=== PATIENT | female | born 2000 | race Hispanic/Latino ===

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

== ENCOUNTER 2020-07-07 01:09 | Emergency (ER) | payer OTHER ==
[~2020-07-07] VITALS: Ht 162.6 cm; Wt 72.6 kg
--- OUTSIDE RECORDS SUMMARY | ~2020-07-07 | XMS | Encounter Summary ---
Demographics + + + | Address | [address] | | | [place] [address] | + + + | Home Phone | | + + + | Preferred Language | Unknown | + + + | Marital Status | Single | + + + | Voodoo Affiliation | Unknown | + + + | Race | Unknown | + + + | Ethnic Group | Unknown | + + + Author + + + | Author | [facility] | | | and Enmanuelana | + + + | Organization | [facility] | | | and Enmanuelana | + + + | Address | Unknown | + + + | Phone | Unavailable | + + + Support + + + + + | Name | Relationship | Address | Phone | + + + + + | Jennifer Portillo | ECON | [address] | | | | | [place] | | | | | [address] | | + + + + + | Adi Stark | ECON | Unknown | | + + + + + Care Team Providers + +------+ + | Care Director Revenue Name | Role | Phone | + +------+ + | Tsering Trent MD | PCP | | + +------+ + Reason for Visit + + + | Reason | Comments | + + + | Follow-up | | + + + Evaluate & Treat (Routine) +--------+--------+ + + + + | Status | Reason | Specialty | Diagnoses / | Referred By | Referred To | | | | | Procedures | Contact | Contact | +--------+--------+ + + + + | Closed | | Pulmonology | Diagnoses | [place], | Sofía, | | | | | Other | Tsering Rodrigues, | Nava Grcae, | | | | | dyspnea and | MD [address] | MD [address] | | | | respiratory | [address] | | | | | abnormality | [address] | [place], | | | | | Procedures | [place], | [place] [address] | | | | | [place] OFFICE | [place] [address] | | | | | | OUTPATIENT | Phone: | | | | | | VISIT 25 | [phone] | | | | | | MINUTES | Fax: | | | | | | | [phone] | | +--------+--------+ + + + + Encounter Details +--------+---------+ + + + | Date | Type | Department | Care Team | Description | +--------+---------+ + + + | 06/20/ | Office | [facility] [place] | Sofía, | Exercise-induced | | 2013 | Visit | PULMONARY [address] | Nava Grace MD | asthma (Primary Dx) | | | | [place], | | | | | | [place] [address] | | | | | | [phone] | | | +--------+---------+ + + + Social History + + + +--------+------+ | Tobacco Use | Types | Packs/Day | Years | Date | | | | | Used | | + + + +--------+------+ | Former Smoker | Cigarettes | 0.1 | 0.1 | | + + + +--------+------+ + + +---------+ + | Alcohol Use | Drinks/Week | oz/Week | Comments | + + +---------+ + | No | | | has drank alcohol | | | | | once, but does not | | | | | drink regularly | + + +---------+ + + + + | Sex Assigned at | Date Recorded | | | | + + + | Not on file | | + + + documented as of this encounter Last Filed Vital Signs + + + + + | Vital Sign | Reading | Time Taken | Comments | + + + + + | Blood Pressure | 122/66 | 06/20/2014 3:28 PM | | | | | PDT | | + + + + + | Pulse | 75 | 06/20/2014 3:28 PM | | | | | PDT | | + + + + + | Temperature | - | - | | + + + + + | Respiratory Rate | - | - | | + + + + + | Oxygen Saturation | 100% | 06/20/2014 3:28 PM | | | | | PDT | | + + + + + | Inhaled Oxygen | - | - | | | Concentration | | | | + + + + + | Weight | 64.3 kg (141 lb 12.8 | 06/20/2014 3:28 PM | | | | oz) | PDT | | + + + + + | Height | 161.3 cm (5' 3.5") | 06/20/2014 3:28 PM | | | | | PDT | | + + + + + | Body Mass Index | 24.72 | 06/20/2014 3:28 PM | | | | | PDT | | + + + + + documented in this encounter Patient Instructions Patient Instructions Nava Gore MD - 06/20/2014 4:07 PM PDTYour breathing test did not show that your lung function gets worse when you exercise. This makes exercise remy duran asthma unlikely, though not impossible. I will ask Dr. Trent to consider an EKG or stress test to look at the chest pain. That aside, I think you need to focus on exercising more and looking at what sport you want to do in high school. Keep using the ProAir as needed if you are short of breath. Stay off of the Singulair. No smoking (anything)! We will reassess how you are doing in 6 months (if your insurance will cover it). documented in this encounter Progress Notes Nava Gore MD - 06/20/2014 3:52 PM PDTFormatting of this note might be differe nt from the original. Pulmonary Follow Up HPI Giana Stark is a 13 y.o. female patient of Tsering Trent here today for follo w up of shortness of breath. She had an exercise provocation test today, and when she had this done, she describes havin g her heart pound fast and sharp pains. This is similar to the sensation she gets when she exercises. After the test, she describes herself as feeling tired. During the post testing s pirometry, she describes herself as having a hard time breathing. She was still having the s harp pains and the heart pounding. The pains got better in between the test, but never went away. She is no longer having the symptoms, so time after the test, her symptoms went comple tely away. She has not had any Pepsi today. She has not been taking the Singulair since she was last i n clinic. She has not done much in the way of exertion since last seen. She ran around the b lock and then stopped because she got short of breath. She used her inhaler, and it did seem to help her. It took about 2 minutes before it helped relieve her symptoms. She has not been coughing at all. Past Medical History Past Medical History Diagnosis Date GERD (gastroesophageal reflux disease) Past Surgical History History reviewed. No pertinent past surgical history. Social History: History Social History Marital Status: Single Spouse Name: N/A Number of Children: N/A Years of Education: N/A Occupational History Student [employer] Social History Main Topics Smoking status: Former Smoker -- 0.1 packs/day for .1 years Types: Cigarettes Smokeless tobacco: None Alcohol Use: No Comment: has drank alcohol once, but does not drink regularly Drug Use: Yes Comment: smokes marijuana daily since age 12 Sexually Active: None Other Topics Concern None Social History Narrative [place]: mom and siblingsG[place] up: in [place] previously live d in: [place], [place]posure to toxic chemicals: noExposure to asbestos: noExposure to tuberculosis: no Has had a PPD or Quantiferon before: noHas pets at home: no Has ever owned birds: when s he was much younger Other animal exposures: grandparents' dogHobbies: playing video games an d hanging out with friend's Allergies: No Known Allergies Medications: Outpatient Encounter Prescriptions as of 06/20/2014 Medication Sig Dispense Refill albuterol (PROAIR HFA) 90 mcg/puff inhaler Inhale 2 puffs into the lungs every 6 hours as needed. omeprazole (PRILOSEC) 20 mg capsule Take 20 mg by mouth every morning (before breakfast ). Objective BP 122/66 | Pulse 75 | Ht 1.613 m (5' 3.5") | Wt 64.32 kg (141 lb 12.8 oz) | BMI 24.72 kg/m 2 | SpO2 100% General Appearance: Alert, cooperative, no distress, appears stated age Data: Exercise provocation test was performed prior to clinic today and were reviewed and interpr eted in clinic today. It shows no evidence of bronchial hyper responsiveness in response to exercise. Immunization History Administered Date(s) Administered INFLUENZA, PRESERVATIVE FREE IM 09/30/2013 Assessment 1. Exercise-induced asthma - With negative exercise provocation, my suspicion is low for th is as a diagnosis. I would have her remain off the Singulair, but she can use the ProAir if needed. I encouraged her to exercise more often, pending any work up for the chest pain felt necessary by her PCP. We can then reassess in 6 months and if she improves with increased a ctivity, then I think we can say it is likely that she does not have exercise induced asthma . She could also have vocal cord dysfunction, which would not be atypical in her age group, and I would not yet exclude, though she had reproducible symptoms on her testing, and no sig ns of this on her flow volume loops, making it less likely. 2. Chest pain- She describes chest pain on exertion. Though cardiac disease is unlikely in a 13 year old, certain cardiac diseases can present in children. I would consider EKG and st ress test as felt appropriate by her primary provider. I am not a pediatriac specialist, so expect that they are more well versed in this than I, and defer to their expertise. Plan 1.Remain off of Singulair given lack of objective and subjective benefit. 2.Continue to use ProAir if needed. 3.Pending any cardiac work up felt relevant, I suggested she increase her exercise, and pic k a sport to start at high school this fall. 4. Consider EKG and stress test as felt appropriate by her PCP. 5. We can reassess her symptoms in 6 months and see if she is improving. She was advised to call if new pulmonary symptoms were to develop. 20 minutes were spent with Ms. Stark with greater than 50% spent in counseling and coordi nation of care regarding her test results and management. Return to clinic in 6 months, or sooner with concerns. CC: Tsering Trent Portions of this report were transcribed using voice recognition software. Every effort wa s made to ensure accuracy; however, inadvertent computerized barrel filler head errors may be pre sent. Electronically signed by: Nava Gore MD 06/20/2014 15:53 documented in t his encounter Plan of Treatment Not on filedocumented as of this encounter Visit Diagnoses + + | Diagnosis | + + | Exercise-induced asthma - Primary Exercise induced bronchospasm | + + documented in this encounter
--- OUTSIDE RECORDS SUMMARY | ~2020-07-07 | XMS | Clinical Summary ---
Demographics + + + | Address | [address] | | | [place] [address] | + + + | Home Phone | | + + + | Preferred Language | Unknown | + + + | Marital Status | Single | + + + | Church Affiliation | Unknown | + + + | Race | Unknown | + + + | Ethnic Group | Unknown | + + + Author + + + | Author | [facility] | | | and Enmanuelana | + + + | Organization | [facility] | | | and [place]manuel[place] | + + + | Address | Unknown | + + + | Phone | Unavailable | + + + Support + + + + + | Name | Relationship | Address | Phone | + + + + + | Jennifer Portillo | ECON | [address] | | | | | [place], [place] | | | | | [address] | | + + + + + | Adi Stark | ECON | Unknown | | + + + + + Care Team Providers + +------+ + | Care Lockstitch Waistband Setter Name | Role | Phone | + +------+ + | Tsering Trent MD | PCP | | + +------+ + Allergies No Known Allergies Medications + + + +---------+------+------+-------+ | Medication | Sig | Dispensed | Refills | Star | End | Statu | | | | | | t | Date | s | | | | | | Date | | | + + + +---------+------+------+-------+ | albuterol (PROAIR | Inhale 2 puffs into | | 0 | | | Activ | | HFA) 90 mcg/puff | the lungs every 6 | | | | | e | | inhaler | hours as needed. | | | | | | + + + +---------+------+------+-------+ | omeprazole | Take 20 mg by mouth | | 0 | | | Activ | | (PRILOSEC) 20 mg | every morning | | | | | e | | capsule | (before breakfast). | | | | | | + + + +---------+------+------+-------+ Active Problems + + + | Problem | Noted Date | + + + | DERAS (dyspnea on exertion) | 06/06/2014 | + + + | GERD (gastroesophageal reflux disease) | 05/22/2014 | + + + Immunizations + + + + | Name | Administration Dates | Next Due | + + + + | INFLUENZA PF 17 Y OR | 09/30/2013 | | | >,TRIVALENT | | | | RECOMBINANT | | | + + + + Family History + + +------+ + | Medical History | Relation | Name | Comments | + + +------+ + | Heart attack | Mother | | s/p stent | + + +------+ + | High blood pressure | Mother | | | + + +------+ + | High cholesterol | Mother | | | + + +------+ + | Other (see comment) | Mother | | D&C x 2 | + + +------+ + + +------+--------+ + | Relation | Name | Status | Comments | + +------+--------+ + | Brother | | Alive | | + +------+--------+ + | Brother | | Alive | | + +------+--------+ + | Brother | | Alive | | + +------+--------+ + | Brother | | Alive | | + +------+--------+ + | Father | | Alive | | + +------+--------+ + | Mother | | Alive | | + +------+--------+ + | Sister | | Alive | | + +------+--------+ + | Sister | | Alive | | + +------+--------+ + | Sister | | Alive | | + +------+--------+ + Social History + + + +--------+------+ [...] on file | | + + + Last Filed Vital Signs + + + [...] + + + + | Temperature | 36.6 C (97.8 F) | 06/06/2014 10:32 AM | | | | | PDT | [...] | | + + + + + Plan of Treatment + + + + + | Health Maintenance | Due Date | Last | Comments | | | | Done | | + + + + + | Well Child Check | | | | | | 2 | | | + + + + + | Vaccine: HPV (1 - | | | | | 2-dose series) | 0 | | | + + + + + | Vaccine: | | | | | Dtap/Tdap/Td (1 - | 8 | | | | Tdap) | | | | + + + + + | Cervical Cancer | | | | | Screening (Pap) | 0 | | | + + + + + | Vaccine: Influenza | | 09/30/20 | | | (#1) | 0 | 13 | | + + + + + Results Not on filefrom Last 3 Months Insurance + +--------+ +--------+ +---------+--------+ | Payer | Benefi | Subscriber | Effect | Phone | Address | Type | | | t Plan | ID | lidia | | | | | | / | | Dates | | | | | | Group | | | | | | + +--------+ +--------+ +---------+--------+ | [employer] | [employer] | [id number] | | [phone] | | Medica | | MEDICAID HMO | HEALTH | | 012-Pr | 1 | | id | | | MDCD | | esent | | | | | | [place]MO [place] | | | | | | + +--------+ +--------+ +---------+--------+ + +--------+ +--------+ + + | Guarantor Name | Accoun | Relation to | Date | Phone | Billing Address | | | t Type | Patient | of | | | | | | | | | | + +--------+ +--------+ + + | Jennifer Portillo | Person | Mother | [birth year] | [address] | | [place] | al/Fam | | 1981 | [phone] | [place] [address] | | | moriah | | | 6 (Home) | | + +--------+ +--------+ + + Advance Directives + + + + + | Type | Date Recorded | Patient | Explanation | | | | [employer] | | + + + + + | Power of | | | | | Hotel General Manager | | | | + + + + + | Advance | 06/20/2014 2:03 | | | | Directive | PM | | | + + + + +
--- OUTSIDE RECORDS SUMMARY | ~2020-07-07 | XMS | Encounter Summary ---
Demographics + + + | Address | [address] | | | [place] [address] | + + + | Home Phone | | + + + | Preferred Language | Unknown | + + + | Marital Status | Single | + + + | Islam Affiliation | Unknown | + + + | Race | Unknown | + + + | Ethnic Group | Unknown | + + + Author + + + | Author | [facility] | | | and Enmanuelana | + + + | Organization | [facility] | | | and Enmanuelana | [...] [place] | | | | | [address] | | + + + + + | Adi Antunez ECON | Unknown | | + + + + + Care Team Providers + +------+ + | Care Director Work Name | Role | Phone | + +------+ + | Tsering Trent MD | PCP | | + +------+ + Encounter Details +--------+ + + + + | Date | Type | Department | Care Team | Description | +--------+ + + + + | 06/20/ | Hospital | [facility] | [place], | DERAS (dyspnea on | | 2013 | Encounter | [facility] | Nava Grace MD | exertion) | | | | FUNCTION [address] | | | | | | [place], | | | | | | [place] [address] | | | | | | [phone] | | | +--------+ + + + + Social History + + [...] + + documented as of this encounter Medications at Time of Discharge + + + +---------+--------+ + | Medication | Sig | Dispensed | Refills | Start | End Date | | | | | | Date | | + + + +---------+--------+ + | albuterol (PROAIR | Inhale 2 puffs into | | 0 | | | | HFA) 90 mcg/puff | the lungs every 6 | | | | | | inhaler | hours as needed. | | | | | + + + +---------+--------+ + | omeprazole | Take 20 mg by mouth | | 0 | | | | (PRILOSEC) 20 mg | every morning | | | | | | capsule | (before breakfast). | | | | | + + + +---------+--------+ + documented as of this encounter Procedure Notes Nava Gore MD - 06/26/2014 8:38 AM PDTAssociated Order(s): PFT PULMONARY FUNCT ION TESTING ORDERSProcedure(s): PFT PULMONARY FUNCTION TESTING ORDERSPre-Procedure Diagnose( s): DERAS (dyspnea on exertion) PULMONARY FUNCTION TESTING METHOD: The patient performed exercise on the bicycle until target heart rate obtained, inc reasing the blount from 0 to 125, at a rate of 25 per minute. Oxygen saturation was continuou sly monitored. Once target heart rate was achieved, spirometry was measured every 5 minutes post exercise, up until a drop of 20% was seen, or until the 20 minute time period. ATS dede dards were met. EXERCISE PROVOCATION TEST: Prior to exercise, the patient's baseline FVC was normal at 3.63 L or 103% of predicted. Their baseline FEV1 was normal at 3.30 L or 106% of predicted. The patient then performed 6 minutes of exercise, achieving a heart rate 178, with a target hear t rate 175. This was at 125 blount. Oxygen saturation was 100% prior to exercise, and 100% at end exercise. Serial spirometry was then performed, starting at 5 minutes, until 20 minutes post exercise. At 20 minutes post exercise, The FVC was 3.51 L or 100% of predicted. The FE V1 was 3.24 L or 104% of predicted. IMPRESSION: This is interpreted as a negative exercise provocation test, without evidence f or bronchial hyperresponsiveness in response to exercise. Electronically signed by: Nava Gore MD 06/26/2014 8:38 M [facility] CC: Tsering Trent [facility] T - 06/20/2014 12:00 AM PDTAssociated Order(s): [facility]ST[facility] signed by Israel Emmanuel at 06/27/2014 10:31 AM PDTdocumented in this encounter Plan of Treatment Not on filedocumented as of this encounter Procedures + +--------+ + + + | Procedure Name | Priori | Date/Time | Associated Diagnosis | Comments | | | ty | | | | + +--------+ + + + | PFT PULMONARY | [facility] | 06/26/2014 | DERAS (dyspnea on | Results for this | | FUNCTION TESTING | | 8:49 AM | exertion) | procedure are in the | | ORDERS | | PDT | | results section. | + +--------+ + + + | PFT PULMONARY | [facility] | 06/26/2014 | DERAS (dyspnea on | Results for this | | FUNCTION TESTING | | 8:49 AM | exertion) | procedure are in the | | ORDERS | | PDT | | results section. | + +--------+ + + + | DIAGNOSTIC REPORT - | | 06/20/2014 | | | | EXTERNAL SCAN | | 12:00 AM | | | | | | PDT | | | + +--------+ + + + documented in this encounter Results PFT PULMONARY FUNCTION TESTING ORDERS Exercise induced asthma testing?: Yes; Exercise induc ed asthma testing?: Yes (06/26/2014 8:49 AM PDT) + + + | Narrative | Performed At | + + + | Nava Gore MD 06/26/2014 8:49 PULMONARY | | | FUNCTION TESTING METHOD: The patient performed exercise on the | | | bicycle until target heart rate obtained, increasing the blount from | | | 0 to 125, at a rate of 25 per minute. Oxygen saturation was | | | continuously monitored. Once target heart rate was achieved, | | | spirometry was measured every 5 minutes post exercise, up until a | | | drop of 20% was seen, or until the 20 minute time period. ATS | | | standards were met. EXERCISE PROVOCATION TEST: Prior to exercise, | | | the patient's baseline FVC was normal at 3.63 L or 103% of | | | predicted. Their baseline FEV1 was normal at 3.30 L or 106% of | | | predicted. The patient then performed 6 minutes of exercise, | | | achieving a heart rate 178, with a target heart rate 175. This was | | | at 125 blount. Oxygen saturation was 100% prior to exercise, and 100% | | | at end exercise. Serial spirometry was then performed, starting at | | | 5 minutes, until 20 minutes post exercise. At 20 minutes post | | | exercise, The FVC was 3.51 L or 100% of predicted. The FEV1 was 3.24 | | | L or 104% of predicted. IMPRESSION: This is interpreted as a | | | negative exercise provocation test, without evidence for bronchial | | | hyperresponsiveness in response to exercise. Electronically | | | signed by: Nava Gore MD 06/26/2014 8:38 [facility] | | [facility] CC: Tsering Rodrigues [place] | | + + + + + | Procedure Note | + + | Nava Gore MD - 06/26/2014 8:38 AM PDT PULMONARY FUNCTION TESTING | | METHOD: The patient performed exercise on the bicycle until target heart rate obtained, | | increasing the blount from 0 to 125, at a rate of 25 per minute. Oxygen saturation was | | continuously monitored. Once target heart rate was achieved, spirometry was measured | | every 5 minutes post exercise, up until a drop of 20% was seen, or until the 20 minute | | time period. ATS standards were met. EXERCISE PROVOCATION TEST: Prior to exercise, the | | patient's baseline FVC was normal at 3.63 L or 103% of predicted. Their baseline FEV1 | | was normal at 3.30 L or 106% of predicted. The patient then performed 6 minutes of | | exercise, achieving a heart rate 178, with a target heart rate 175. This was at 125 | | blount. Oxygen saturation was 100% prior to exercise, and 100% at end exercise. Serial | | spirometry was then performed, starting at 5 minutes, until 20 minutes post exercise. At | | 20 minutes post exercise, The FVC was 3.51 L or 100% of predicted. The FEV1 was 3.24 L | | or 104% of predicted. IMPRESSION: This is interpreted as a negative exercise | | provocation test, without evidence for bronchial hyperresponsiveness in response to | | exercise. Electronically signed by: Nava Gore MD 06/26/2014 8:38[facility] | | [facility] Tsering Rodrigues [place] | + + documented in this encounter Visit Diagnoses + + | Diagnosis | + + | DERAS (dyspnea on exertion) Other dyspnea and respiratory abnormality | + + documented in this encounter"
--- OUTSIDE RECORDS SUMMARY | ~2020-07-07 | XMS | Encounter Summary ---
Demographics + + + | Address | [address] | | | [place] [address] | + + + | Home Phone | | + + + | Preferred Language | Unknown | + + + | Marital Status | Single | + + + | Hoahaoism Affiliation | Unknown | + + + | Race | Unknown | + + + | Ethnic Group | Unknown | + + + Author + + + | Author | [facility] | | | and Enmanuelana | + + + | Organization | [facility] | | | and Enmanuelana [...] [place] | | | | | [address] | | + + + + + | Adi Stark | ECON | Unknown | | + + + + + Care Team Providers + +------+ + | Care Furnace Process Supervisor Name | Role | Phone | + +------+ + | Tsering Trent MD | PCP | | + +------+ + Reason for Visit + +--------+ + | Reason | Onset | Comments | | | Date | | + +--------+ + | Appointment | 12/21/ | | | | 2014 | | + +--------+ + Encounter Details +--------+ + + + + | Date | Type | Department | Care Team | Description | +--------+ + + + + | 12/21/ | Telephone | [facility] [place] | [place], | Appointment | | 2014 | | PULMONARY [address] | Nava Grace MD | | | | | [place], | | | | | | [place] [address] | | | | | | [phone] | | | +--------+ + + + [...] + + documented as of this encounter Miscellaneous Notes Telephone Encounter - Rula Karimi - 01/10/2015 10:38 AM PSTLEFT VOICE MESSAGE 12-06 AND 01-10-15 TO RESCHEDULE PATIENT FOR A FOLLOW UP APPOINTMENT WITH DR. BERNARD. CHING Gamble HAS BEEN SENT. AT THIS TIME NO APPOINTMENT HAS BEEN MADE. IF PATIENTS MOTHER IS TO CALL Yue NEWMAN IN THE NEXT AVAILABLE. 10 :40 AM PSTTelephone Encounter - Carmelita Kerr - 12/21/2014 4:22 PM PSTI left a message o n mother's voicemail to see if she would like to reschedule the appointment that she missed with Dr. Bernard on 12/01/14. 4:2 2 PM PSTdocumented in this encounter Plan of Treatment Not on filedocumented as of this encounter Visit Diagnoses Not on filedocumented in this encounter"
--- OUTSIDE RECORDS SUMMARY | ~2020-07-07 | XMS | Encounter Summary ---
Demographics + + + | Address | [address] | | | [place] [address] | + + + | Home Phone | | + + + | Preferred Language | Unknown | + + + | Marital Status | Single | + + + | Sikh Affiliation | Unknown | + + + | Race | Unknown | + + + | Ethnic Group | Unknown | + + + Author + + + | Author | [facility] | | | and Enmanuelana | + + + | Organization | [facility] | | | and Enmanuelana [...] [place] | | | | | [address] | | + + + + + | Adi Stark | ECON | Unknown | | + + + + + Care Team Providers + +------+ + | Care Tail Worker Name | Role | Phone | + +------+ + | Tsering Trent MD | PCP | | + +------+ + Reason for Visit + +--------+ + | Reason | Onset | Comments | | | Date | | + +--------+ + | Appointment | 05/18/ | consult | | | 2013 | | + +--------+ + Encounter Details +--------+ + + + + | Date | Type | Department | Care Team | Description | +--------+ + + + + | 05/18/ | Telephone | [facility] [place] | [place], | Appointment | | 2013 | | PULMONARY [address] | Nava Grace MD | (consult) | | | | [place], | | | | | | [place] [address] | | | | | | [phone] | | | +--------+ + + + + Social History + +-------+ +--------+------+ | Tobacco Use | Types | Packs/Day | Years | Date | | | | | Used | | + +-------+ +--------+------+ | Never Assessed | | | | | + +-------+ +--------+------+ + + + | Sex Assigned at | Date Recorded | | | | + + + | Not on file | | + + + documented as of this encounter Miscellaneous Notes Telephone Encounter - Rula Karimi - 05/19/2014 9:32 AM PDTScheduled 7.8.14Electr onically signed by Rula Karimi at 05/19/2014 9:32 AM PDTTelephone Encounter - Rula Parkinson - 05/18/2014 10:59 AM PDTLeft voice message to schedule patient a FOOD SAFETY MANAGER consu lt with Dr. Gore. If patient is to call back please schedule in the next available. documented in this encounter Plan of Treatment Not on filedocumented as of this encounter Visit Diagnoses Not on filedocumented in this encounter"
--- OUTSIDE RECORDS SUMMARY | ~2020-07-07 | XMS | Encounter Summary ---
Demographics + + + | Address | [address] | | | [place] [address] | + + + | Home Phone | | + + + | Preferred Language | Unknown | + + + | Marital Status | Single | + + + | Judaism Affiliation | Unknown | + + + | Race | Unknown | + + + | Ethnic Group | Unknown | + + + Author + + + | Author | [facility] | | | and Enmanuelana | + + + | Organization | [facility] | | | and [...] [place] | | | | | [address] | | + + + + + | Adi Stark | ECON | Unknown | | + + + + + Care Team Providers + +------+ + | Care University Intern Name | Role | Phone | + +------+ + | Tsering Trent MD | PCP | | + +------+ + Reason for Visit + + + | Reason | Comments | + + + | Establish Care | | + + + Evaluate & Treat (Routine) +--------+--------+ + + + + | Status | Reason | Specialty | Diagnoses / | Referred By | Referred To | | | | | Procedures | Contact | Contact | +--------+--------+ + + + + | Closed | | Pulmonology | Diagnoses | Cristhian, | Sofía, | | | | | Other | Ellie Montelongo, | Nava Grace, | | | | | diseases of | MARINE RAILWAY OPERATOR [address] | MD [address] | | | | | respiratory | [address] | [address] | | | | | system, not | [id number] | [place], | | | | | elsewhere | [place], | [place] [address] | | | | | classified | [place] [address] | | | | | | Esophageal | Phone: | | | | | | reflux | [phone] | | | | | | Procedures | Fax: | | | | | | CONSULTATION | [phone] | | +--------+--------+ + + + + Encounter Details +--------+---------+ + + + | Date | Type | Department | Care Team | Description | +--------+---------+ + + + | 06/06/ | Office | [facility] [place] | Ifeanyienstein, | DERAS (dyspnea on | | 2013 | Visit | PULMONARY [address] | Nava Grace MD | exertion) (Primary | | | | [place], | | Dx); GERD | | | | [place] [address] | | (gastroesophageal | | | | [phone] | | reflux disease) | +--------+---------+ + + + Social History [...] + + + | Blood Pressure | 112/70 | 06/06/2014 10:32 AM | | | | | PDT | | + + + + + | Pulse | 70 | 06/06/2014 10:32 AM | | | | | PDT | | + + + + + | Temperature | 36.6 C (97.8 F) | 06/06/2014 10:32 AM | | | | | PDT | | + + + + + | Respiratory Rate | - | - | | + + + + + | Oxygen Saturation | 100% | 06/06/2014 10:32 AM | | | | | PDT | | + + + + + | Inhaled Oxygen | - | - | | | Concentration | | | | + + + + + | Weight | 63.1 kg (139 lb 3.2 | 06/06/2014 10:32 AM | | | | oz) | PDT | | + + + + + | Height | 161.9 cm (5' 3.75") | 06/06/2014 10:32 AM | | | | | PDT | | + + + + + | Body Mass Index | 24.08 | 06/06/2014 10:32 AM | | | | | PDT | | + + + + + documented in this encounter Patient Instructions Patient Instructions Nava Gore MD - 06/06/2014 11:31 AM PDTStop Singulair now. Continue to use the ProAir as needed. We will schedule the exercise breathing test in 2-4 weeks after you have been off the Singu lair. documented in this encounter Progress Notes Nava Gore MD - 06/06/2014 10:46 AM PDTFormatting of this note might be differe nt from the original. Pulmonary Consult Referring Provider: Ellie Morrow, XOCHILT HPI Giana Stark is a 13 y.o. female patient of Tsering Trent here today for evalu ation of shortness of breath. She notes that when she is active, she has a very hard time breathing and she loses her rafia ath. She notes that this started last year, she thinks in the winter time. She does not real ly recall it starting. She notes that her typical activity is that she walks to her friends' houses and she gets v joe tired. Her friends live down the street, about 9 houses down. At school, she has PE, and she exercises and does 2 laps around the track. She notes she used to do this, but now she gets really tired. She feels like she gets more short of breath than tired. When she gets sh ort of breath she hears herself breathe heavily. She cannot recall the last time she did reg ular exercise. She may have heard herself wheeze, but she is not familiar with wheezing and does not know anyone with asthma (her mom may have a prior diagnosis, but this is not clear) . She does not cough chronically, and does not produce mucous. They have had hemoptysis. She notes she coughed up blood a couple of months ago. She notes that she could not breathe and she went to the bathroom and vomited up blood. Triggers for their shortness of breath include walking, exercise, standing up (which also m akes her dizzy). Relieving factors include using her inhaler (sometimes), smoking marijuana. Treatments that they have tried to this point include Singulair and albuterol. Currently th ey are on Singulair and ProAir. She does not feel like the Singulair helps her, the ProAir h elps "kind of." She uses the ProAir twice daily. She notes she uses it when she feels like she can't breathe and she is trying to calm herself down. She has not been hospitalized or had to go to the emergency room for breathing problems. Soto iyer was a full term and there were no problems after she was born. She was not sick ofte n when she was younger. She did not have issues with asthma when she was younger. She used to play basketball when she was younger, 5th and 6th grade. 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 She notes that the breathing problems happened and then she couldn't do it an ymore. She has been diagnosed as having reflux, and is on omeprazole. She notes her symptoms are b cayla. She notes that at night she would have chest pain, then she would try to throw up bec ause stuff would be coming up, but it would go back down to her stomach. She would sometimes get acid taste in her mouth. The first medication did not make this go away, but the second one did. She drinks Pepsi, 44 ounces a day. She has drank alcohol once, last week. Past Medical History Past Medical History Diagnosis Date GERD (gastroesophageal reflux disease) Past Surgical History History reviewed. No pertinent past surgical history. Family History: Family History Problem Relation Age of Onset High cholesterol Mother High blood pressure Mother Heart attack Mother s/p stent Other (See Comment) Mother D&C x 2 Social History: History Social History Marital Status: Single Spouse Name: N/A Number of Children: N/A Years of Education: N/A Occupational History Student [employer] Social History Main Topics Smoking status: Former Smoker -- 0.1 packs/day for .1 years Types: Cigarettes Smokeless tobacco: None Alcohol Use: No Comment: has drank alcohol once, but does not drink regularly Drug Use: Yes Comment: smokes marijuana daily since age 12 Sexually Active: None Other Topics Concern None Social History Narrative Lives: in [place] With: mom and siblingsG[place] up: in [place] previously live d in: [place], [place]posure to toxic chemicals: noExposure to asbestos: noExposure to tuberculosis: no Has had a PPD or Quantiferon before: noHas pets at home: no Has ever owned birds: when s he was much younger Other animal exposures: grandparents' dogHobbies: playing video games an d hanging out with friend's Allergies: No Known Allergies Medications: Outpatient Encounter Prescriptions as of 06/06/2014 Medication Sig Dispense Refill albuterol (PROAIR HFA) 90 mcg/puff inhaler Inhale 2 puffs into the lungs every 6 hours as needed. montelukast (SINGULAIR) 10 mg tablet Take 10 mg by mouth nightly. omeprazole (PRILOSEC) 20 mg capsule Take 20 mg by mouth every morning (before breakfast ). Review of Systems Constitutional: Denies fever, chills, sweats. She reports weight gain. Sleep: She reports difficulty sleeping. She goes to be around 5am, and gets up in the afte rnoon around 1pm. Eyes: She notes her vision has been blurry lately. She does wear glasses and is due for a prescription renewal. ENT: Denies earache, decreased hearing, nosebleeds, sore throat, and hoarseness. She repor ts runny nose and sneezing when the season changes to winter. Resp: See HPI. CV: Denies palpitations, syncope, and peripheral edema. GI: See HPI. : Denies difficulty emptying bladder. Musculoskeletal: Denies joint pain/stiffness, joint swelling, and muscle cramps. Derm: Denies rash, itching, dryness, and suspicious lesions. Neurologic: Denies seizures, numbness or tingling in hands or fee. She gets headaches often . Psych: Denies anxiety, and suicidal ideation. She reports depression. She has not spoken to anyone about this. Endo: Denies cold intolerance, heat intolerance, and unusual weight change. Heme: Denies bleeding, and enlarged lymph nodes. She feels like she bruises easily. Allergy: Denies food allergies, allergic rash. Seasonal allergies as above. Objective BP 112/70 | Pulse 70 | Temp 36.6 C (97.8 F) (Tympanic) | Ht 1.619 m (5' 3.75") | Wt 63. 141 kg (139 lb 3.2 oz) | BMI 24.09 kg/m2 | SpO2 100% RA General Appearance: Alert, cooperative, no distress, appears stated age Head: Normocephalic, without obvious abnormality, atraumatic Eyes: PERRL, conjunctiva clear, no scleral icterus, EOM's intact Ears: Normal TM's, external auditory canals, normal acuity Nose: Nares normal, septum midline, mucosa normal Mouth: No oral lesions or exudate Neck: Supple, symmetrical, no adenopathy Lungs: No accessory muscle use, breath sounds are clear to auscultation bilaterally, no w heezes, crackles or rhonchi Chest Wall: No deformity Heart: Regular rate and rhythm, no murmur, rub or gallop Abdomen: Soft, non-tender, non-distended Extremities: No cyanosis, clubbing, or edema Pulses: Radial pulses 2+ and symmetric Skin: Warm and dry Lymph nodes: Cervical and supraclavicular nodes normal Data: Pulmonary function tests were performed on January 19, 2014 and were reviewed and interpre monroe in clinic today. They show normal spirometry, normal lung volumes, and a normal diffusi on capacity. Ellie Morrow's notes were reviewed in clinic today. Immunization History Administered Date(s) Administered INFLUENZA, PRESERVATIVE FREE IM 09/30/2013 Assessment 1. DERAS (dyspnea on exertion) - Diagnosis is not readily apparent, though exercise induced a sthma is a possibility. Her symptoms are on exertion only. Unclear that she actually has whe ezing, as she cannot come up with those descriptors herself, but is complicit with the descr iption when given (I do not think she is trying to fake this, more that she is trying to com ply). I am not certain if there is some underlying component of anxiety, depression, decondi tioning, VCD. I would also consider anemia. I think this is a fairly complex social situatio n when I dig a little deeper in to questioning her, though mom seems supportive. We will start by stopping her Singulair (did not get any symptomatic benefit) and doing exe rcise provocation testing. If this is negative, I would check a CBC, and then look at possib ly doing a VCD evaluation. I also did advise against smoking, as this is going to affect her breathing regardless of t he etiology of her issues. It is also a demotivator and depressant. 2. GERD (gastroesophageal reflux disease) - Currently well controlled on omeprazole. We dis cussed caffeine usage and how this affects reflux control, and I recommended decrease in caf feine intake. I suspect some of her insomnia would be better controlled with regular adheren ce to a sleep schedule and decreased caffeine intake. Plan 1.Stop Singulair. 2.Continue ProAir as needed. 3. Perform exercise provocation testing in 2-4 weeks after being off of Singulair. No caffe ine allowed the day of testing. 4.Consider next: checking CBC, VCD evaluation. 5. Remain on omeprazole. 6. Recommended decrease in caffeine intake. She was advised to call if new pulmonary symptoms were to develop. Return to clinic in 2-4 weeks, or sooner with concerns. CC: Cristhian Santacruz, Ellie Montelongo, XOCHILT Portions of this report were transcribed using voice recognition software. Every effort wa s made to ensure accuracy; however, inadvertent computerized entry processor errors may be pre sent. Electronically signed by: Nava Gore MD 06/06/2014 11:10 documented in t his encounter Miscellaneous Notes Miscellaneous - ONTOSHA MOODYAR - 06/06/2014 12:00 AM PDT documented in this encounter Plan of Treatment Not on filedocumented as of this encounter Results PFT PULMONARY FUNCTION TESTING [...] signed by: Nava Gore MD 06/26/2014 8:38 [facility] | | | [facility] CC: Tsering Trent | | + + + + + [...] Nava Gore MD 06/26/2014 8:38[facility] | | [facility] | + + documented in this encounter Visit Diagnoses + + | Diagnosis | + + | DERAS (dyspnea on exertion) - Primary Other dyspnea and respiratory abnormality | + + | GERD (gastroesophageal reflux disease) Esophageal reflux | + + documented in this encounter
--- OUTSIDE RECORDS SUMMARY | ~2020-07-07 | XMS | Encounter Summary ---
Demographics + + + | Address | [address] | | | [place] [address] | + + + | Home Phone | | + + + | Preferred Language | Unknown | + + + | Marital Status | Single | + + + | Orthodox Affiliation | Unknown | + + + | Race | Unknown | + + + | Ethnic Group | Unknown | + + + Author + + + | Author | [facility] | | | and Enmanuelana | + + + | Organization | [facility] | | | and Enmanuelana [...] [place] | | | | | [address] | | + + + + + | Adi Antunez ECON | Unknown | | + + + + + Care Team Providers + +------+ + | Care Transportation Clerk Name | Role | Phone | + +------+ + | Tsering Trent MD | PCP | | + +------+ + Encounter Details +--------+ + + + + | Date | Type | Department | Care Team | Description | +--------+ + + + + | 05/22/ | Abstract | [facility] [place] | [place], | GERD | | 2013 | | PULMONARY [address] | Nava Grace MD | (gastroesophageal | | | | [place], | | reflux disease) | | | | [place] [address] | | (Primary Dx) | | | | [phone] | | | +--------+ + + + [...] + + documented as of this encounter Plan of Treatment Not on filedocumented as of this encounter Visit Diagnoses + + | Diagnosis | + + | GERD (gastroesophageal reflux disease) - Primary Esophageal reflux | + + documented in this encounter"
== END 2020-07-07 02:40 | disposition home or self-care (01) ==
LOC: ED 01:09
DX: F10.129 Alcohol abuse with intoxication, unspecified (principal); Y90.7 Blood alcohol level of 200-239 mg/100 ml
CPT/HCPCS: 80053; 81001; 84703; 85025; 96374; 99284-25; G0480; J2405

== ENCOUNTER 2021-05-01 11:26 | Emergency (ER) | payer OTHER ==
[~2021-05-01] VITALS: Ht 162.6 cm; Wt 68.0 kg
[2021-05-01] MEDS ORDERED: REGLAN10 MG PO (15:35)
== END 2021-05-01 16:05 | disposition home or self-care (01) ==
LOC: ED 11:26
DX: O21.9 Vomiting of pregnancy, unspecified (principal); O99.281 Endocrine, nutritional and metabolic diseases complicating pregnancy, first trimester; E86.0 Dehydration; O99.611 Diseases of the digestive system complicating pregnancy, first trimester; K21.9 Gastro-esophageal reflux disease without esophagitis; O99.511 Diseases of the respiratory system complicating pregnancy, first trimester; J45.909 Unspecified asthma, uncomplicated; Z3A.01 Less than 8 weeks gestation of pregnancy
CPT/HCPCS: 76801; 76817; 80053; 81001; 83735; 84702; 84703; 85025; 96374; 99284-25; J2765; J7030

== ENCOUNTER 2021-12-05 02:05 | Inpatient (IN) | payer OTHER ==
[~2021-12-05 02:05] MED LIST changes: +REGLAN10 MG PO
--- NOTE | 2021-12-06 07:13 | PR ---
[facility] [address] [facility] [place], [place] [address] Signed PP Progress Notes Datetime Report Generated by CPLuis: 12/06/2021 07:13 SUBJECTIVE: [id number] Pain: Within Normal Limits Nausea/Vomiting: Denies Vital Signs: [id number] Vital Signs: Reviewed; Within Normal Limits EXAM: Ongoing Cardiovascular: Not Done Respiratory: Not Done Abdomen/Uterus: Abnormal Lochia: Normal Vulva/Perineum: Not Done Breasts: Not Done CVA Tenderness: Not Done Extremities: Normal Incision: Not Applicable Progress: Normal Exam Comments: Fundus firm, NT @ U-2. H/H 30.9, WBC 10.3, plat 147k IMPRESSION/PLAN/PROCEDURES: [id number] Impression: Normal Progression Plan: Discharge Procedures: None Progress Notes: Doing well. She desires discharge today. Signing Physician: Vicky Jade MD Copies: ~ *Electronically Signed* 12/06/21712 VICKY JADE MD PATIENT NAME: TASH WILKINSON PROGRESS NOTE DATE OF : 99 PHYSICIAN: VICKY JADE MD RPT #: [id number] REPORT IS CONFIDENTIAL AND NOT TO BE RELEASED WITHOUT AUTHORIZATION
== END 2021-12-06 10:15 | disposition home or self-care (01) | DRG 807 ==
LOC: FBCO 02:05 → FBC 02:17
PROVIDERS: ADMIT Obstetrics & Gynecology; ATTEND Obstetrics & Gynecology
PROC: 10E0XZZ Delivery of Products of Conception, External Approach (ICD-10-PCS; principal; 2021-12-05)
PROC: 10907ZC Drainage of Amniotic Fluid, Therapeutic from Products of Conception, Via Natural or Artificial Opening (ICD-10-PCS; 2021-12-05)
PROC: 3E0R3BZ Introduction of Anesthetic Agent into Spinal Canal, Percutaneous Approach (ICD-10-PCS; 2021-12-05)
PROC: 00HU33Z Insertion of Infusion Device into Spinal Canal, Percutaneous Approach (ICD-10-PCS; 2021-12-05)
DX: O99.02 Anemia complicating childbirth (principal); Z37.0 Single live birth; O70.0 First degree perineal laceration during delivery; Z20.822 Contact with and (suspected) exposure to COVID-19; Z3A.38 38 weeks gestation of pregnancy; D50.9 Iron deficiency anemia, unspecified; O99.62 Diseases of the digestive system complicating childbirth; O99.52 Diseases of the respiratory system complicating childbirth; J45.909 Unspecified asthma, uncomplicated; K21.9 Gastro-esophageal reflux disease without esophagitis
CPT/HCPCS: 01961; 85027; A9270; C9803; J2590; J7121; U0003

== ENCOUNTER 2024-01-09 15:08 | Emergency (ER) | payer OTHER ==
[~2024-01-09] VITALS: Ht 152.4 cm; Wt 82.5 kg
[~2024-01-09 15:08] MED LIST changes: +AMOX TR-K CLV1 EAC1 PO
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
[2024-01-09] MEDS ORDERED: HYDROCODON-ACE1 EA10 PO (16:34)
== END 2024-01-09 16:45 | disposition home or self-care (01) ==
LOC: ED 15:08
DX: S01.01XA Laceration without foreign body of scalp, initial encounter (principal); Y09 Assault by unspecified means; J45.909 Unspecified asthma, uncomplicated; Z79.899 Other long term (current) drug therapy
CPT/HCPCS: 12002; 99283

== ENCOUNTER 2024-12-21 11:17 | Emergency (ER) | payer SELFPAY ==
[~2024-12-21] VITALS: Ht 152.4 cm; Wt 69.9 kg
[~2024-12-21 11:17] MED LIST changes: +HYDROCODON-ACE1 EA10 PO
[2024-12-21] MEDS ORDERED: SODIUM CHLORIDE 0.9% 1,000 ML IV PRN (12:15)
[2024-12-21] MEDS ORDERED: ondansetron HCL 4 MG/2 ML VIAL IV ONE (12:15)
[2024-12-21 12:16] LABS: BASOPHILS 0.5 % (0-2); EOSINOPHILS 0.8 % (0-6); HEMATOCRIT 40.8 % (35.0-50.0); HEMOGLOBIN 13.5 g/dL (12.0-18.0); LYMPHOCYTES 23.2 % (24-44); MCH 28.7 (27-36); MCV 86.8 fl (81-99); MONOCYTES 6.8 % (0-12); NEUTROPHILS 68.7 % (39-80); PLATELET COUNT 193 K/uL (140-440); RDW 13.7 (10.5-15.0)
[2024-12-21 12:52] LABS: ALBUMIN 3.8 g/dL (3.4-5.0); ALBUMIN/GLOBULIN RATIO 0.9 (1.1-2.4); ANION GAP 14.2 (7-21); BILIRUBIN, TOTAL 0.8 ng/dL (0.2-1.0); BUN/CREATININE RATIO 13.84 (6.0-28.6); CALCIUM 8.8 mg/dL (8.5-10.1); CREATININE, SERUM 0.65 mg/dL (0.55-1.02); POTASSIUM 3.2 mmol/L (3.5-5.1)
[2024-12-21 14:12] VITALS: BP 123/63
== END 2024-12-21 14:12 | disposition home or self-care (01) ==
LOC: ED 11:17
PROVIDERS: Emergency Medicine
DX: O21.9 Vomiting of pregnancy, unspecified (principal); Z3A.01 Less than 8 weeks gestation of pregnancy
CPT/HCPCS: 36415; 76801; 76817; 80053; 83690; 84702; 85025; J2405; J7030

== ENCOUNTER 2025-09-23 13:08 | Emergency (ER) | payer OTHER ==
[~2025-09-23] VITALS: Ht 162.6 cm; Wt 74.8 kg
--- OUTSIDE RECORDS SUMMARY | ~2025-09-23 | XMS | Continuity of Care Document ---
Demographics + + + | Address | [address] | | | [place] [address] | + + + | Preferred Language | Unknown | + + + | Marital Status | Never | + + + | Mu-Ism Affiliation | Unknown | + + + | Race | or | + + + | Ethnic Group | Not or | + + + Author + + + | Author | [place] | + + + | Organization | [place] | + + + | Address | [address] [facility] [address] | | | [place] [address] | + + + | Phone | | + + + Care Team Providers + + + + | Care Reimbursement Consultant Name | Role | Phone | + [...] 00:00 | Patient left without being | [facility] | | | seen | [facility] | + + + + Procedures No [...]
--- OUTSIDE RECORDS SUMMARY | 2025-09-23 13:15 | XMS ---
PreManage Notification: TASH WILKINSON Security Panel Cutter Events No recent Security Events currently on file CRITERIA MET - [facility] - 2 Visits in 30 Days CARE PROVIDERS -, [facility]+ Dentist: Exhauster Engineer Current [place] PHONE: [phone] [facility]/Center: Rural [facility] Current FAMILY PHONE: [phone] Pierre has no Care Guidelines for this patient. ETeodoro VISIT COUNT (12 MO.) [address] [place] [address] TOTAL 3 NOTE: Visits indicate total known visits. ED/UCC VISIT TRACKING (12 MO.) 09/23/2025 13:09 [facility] [place] TYPE: Emergency COMPLAINT: - VOMITING 09/19/2025 19:10 [facility] [place] TYPE: Emergency COMPLAINT: - VOMITING, POSSIBLY 12/21/2024 11:18 [facility] [place] TYPE: Emergency COMPLAINT: - VOMITING DIAGNOSES: - Less than 8 weeks gestation of - Vomiting of , unspecified - Vomiting, unspecified INPATIENT VISIT TRACKING (12 MO.) No inpatient visits to display in this time frame [id number]
[2025-09-23] MEDS ORDERED: SODIUM CHLORIDE 0.9% 500 ML IV ONE (13:30)
[2025-09-23 13:36] LABS: BASOPHILS 0.3 % (0.1-1.2); EOSINOPHILS 0.2 % (0.7-5.8); LYMPHOCYTES 18.9 % (19.3-51.7); MCH 25.4 PG (25.6-32.2); MCHC 33.1 g/dL (32.2-35.5); MCV 76.7 fL (79.4-94.8); MONOCYTES 6.2 % (4.7-12.5); NEUTROPHILS 74.0 % (34.0-71.1); RBC 4.64 M/uL (3.93-5.22)
[2025-09-23 13:46] LABS: ALT (SGPT) 42.0 U/L (14-59); AST (SGOT) 18.0 U/L (15-37); GLOMERULAR FILTRATION RATE,EST 129.0 mL/min (>60); PROTEIN, TOTAL 8.1 g/dL (6.4-8.2); UREA NITROGEN 9.0 mg/dL (7-18)
[2025-09-23 15:02] LABS: BLOOD/HGB, URINE NEGATIVE (Negative); KETONE, URINE NEGATIVE (Negative); LEUK ESTERASE, URINE NEGATIVE (negative); NITRITE, URINE NEGATIVE (negative)
[2025-09-23] MEDS ORDERED: ONDANSETRON ODT4 MG PO (16:28)
[2025-09-23 16:39] VITALS: BP 125/80
== END 2025-09-23 16:37 | disposition home or self-care (01) ==
LOC: ED 13:08
PROVIDERS: Emergency Medicine
DX: O21.0 Mild hyperemesis gravidarum (principal); K80.20 Calculus of gallbladder without cholecystitis without obstruction; J45.909 Unspecified asthma, uncomplicated; Z3A.01 Less than 8 weeks gestation of pregnancy
CPT/HCPCS: 36415; 76705; 80053; 81003; 83735; 84703; 85025; 96361; 96374; 99284-25; J2405; J7040

== ENCOUNTER 2025-10-09 20:22 | Day surgery (SDC) | payer OTHER ==
[~2025-10-09] VITALS: Ht 162.6 cm; Wt 78.0 kg
--- OUTSIDE RECORDS SUMMARY | ~2025-10-09 | XMS | Continuity of Care Document ---
Demographics + + + | Address | [address] | | | [place] [address] | + + + | Preferred Language | Unknown | + + + | Marital Status | Never | + + + | Congregational Affiliation | Unknown | + + + | Race | Unknown | + + + | Ethnic Group | Not or | + + + Author + + + | Author | [facility] | + + + | Organization | [facility] | + + + | Address | [address] | | | [place] [address] | + + + | Phone | | + + + Care Team Providers + + + + | Care Facilities Mechanical Design Engineer Name | Role | Phone | + + + + Unavailable | Unavailable | + + + + Unavailable | Unavailable | + + + + Allergies No information. Encounters No information. Functional Status No information. Immunizations No information. Medications No information. Problems + + + + | date | description | facility | + + + + | 2025-09-19 00:00 | Patient left without being | [facility] | | | seen | [facility] | + + + + Procedures No information. Results/Labs No information. Social History +--------+ + + | date | description | facility | +--------+ + + Vital Signs + + + +---------+ | date | measurement | value | units | + + + +---------+ | 2025-09-19 00:00 | BMI | 33.0 | kg/m2 | + + + +---------+ | 2025-09-19 00:00 | BP_diastolic | 63 | mmHg | + + + +---------+ | 2025-09-19 00:00 | BP_systolic | 125 | mmHg | + + + +---------+ | 2025-09-19 00:00 | heart_rate | 67 | /min | + + + +---------+ | 2025-09-19 00:00 | height_metric | 152.4 | cm | + + + +---------+ | 2025-09-19 00:00 | height_standard | 60 | in | + + + +---------+ | 2025-09-19 00:00 | o2_saturation | 97 | % | + + + +---------+ | 2025-09-19 00:00 | respiration_rate | 18 | /min | + + + +---------+ | 2025-09-19 00:00 | | 97.9 | F | | | temperature_standar | | | | | d | | | + + + +---------+ | 2025-09-19 00:00 | weight_metric | 76.6 | kg | + + + +---------+ | 2025-09-19 00:00 | weight_standard | 168.875 | lb | + + + +---------+"
[~2025-10-09 20:22] MED LIST changes: +ONDANSETRON ODT4 MG PO; +SEVOFLURANE 250 ML BTL INH ONE
--- OUTSIDE RECORDS SUMMARY | 2025-10-09 20:29 | XMS ---
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 - 2 Visits in 30 Days CARE PROVIDERS -, [facility]+ Dentist: Printing Sales Representative Current [place] PHONE: [phone] [facility]/Center: Rural [facility] Current FAMILY PHONE: [phone] Pierre has no Care Guidelines for this patient. ETeodoro VISIT COUNT (12 MO.) [address] [place] [address] TOTAL 4 NOTE: Visits indicate total known visits. ED/UCC VISIT TRACKING (12 MO.) 10/09/2025 20:23 [facility] [place] TYPE: Emergency COMPLAINT: - VAGINAL BLEEDING 09/23/2025 13:09 [facility] [place] TYPE: Emergency COMPLAINT: - VOMITING DIAGNOSES: - Calculus of gallbladder without cholecystitis without obstruction - Less than 8 weeks gestation of - Mild hyperemesis gravidarum - Unspecified asthma, uncomplicated - Vomiting of , unspecified 09/19/2025 19:10 [facility] [place] TYPE: Emergency COMPLAINT: - VOMITING, POSSIBLY 12/21/2024 11:18 [facility] [place] TYPE: Emergency COMPLAINT: - VOMITING DIAGNOSES: - Less than 8 weeks gestation of - Vomiting of , unspecified - Vomiting, unspecified INPATIENT VISIT TRACKING (12 MO.) No inpatient visits to display in this time frame [id number]
[2025-10-09 21:25] LABS: BASOPHILS 0.3 % (0.1-1.2); EOSINOPHILS 0.7 % (0.7-5.8); LYMPHOCYTES 12.5 % (19.3-51.7); MCH 25.4 PG (25.6-32.2); MCHC 31.9 g/dL (32.2-35.5); MCV 79.6 fL (79.4-94.8); MONOCYTES 6.0 % (4.7-12.5); NEUTROPHILS 80.3 % (34.0-71.1); RBC 3.39 M/uL (3.93-5.22)
[2025-10-09 21:46] LABS: ABO A; RH POSITIVE
[2025-10-09 22:07] LABS: ALT (SGPT) 34.0 U/L (14-59); AST (SGOT) 22.0 U/L (15-37); GLOMERULAR FILTRATION RATE,EST 135.0 mL/min (>60); PROTEIN, TOTAL 7.0 g/dL (6.4-8.2); UREA NITROGEN 7.0 mg/dL (7-18)
[2025-10-09] MEDS ORDERED: MIDAZOLAM HCL 2 MG/2 ML VIAL ONE (23:05)
[2025-10-09] MEDS ORDERED: LIDOCAINE HCL 2% 5 ML SDV ONE (23:06)
[2025-10-09] MEDS ORDERED: ROCURONIUM BROMIDE 50 MG/5 ML SYR ONE (23:06)
[2025-10-09] MEDS ORDERED: METHYLERGONOVINE MALEATE 0.2 MG/ML AMP ONE (23:14)
[2025-10-09] MEDS ORDERED: fentaNYL citrate 100 MCG/2 ML VIAL ONE (23:19)
[2025-10-09] MEDS ORDERED: SUGAMMADEX SODIUM 200 MG/2 ML ML ONE (23:22)
[2025-10-09] MEDS ORDERED: KETOROLAC TROMETHAMINE 30 MG/ML VIAL ONE (23:42)
--- NOTE | 2025-10-09 23:48 | NUR ---
10/09/25 2346 Lisa Gonzalez 2343: PT ARRIVES TO PACU REACTIVE, NON AROUSAL. REPORT RECEIVED FROM STOCKROOM SELECTOR AND C D REACTOR OPERATOR. AMANDEEP 2346: DR. BARBER AT THE BEDSIDE TO CHECK FOR BLEEDING.
[2025-10-10 00:15] VITALS: BP 103/43
--- NOTE | 2025-10-10 00:35 | NUR ---
0005 - Pt admitted via stretcher from PACU. awakens easily. Pleasant and cooperative. IVF infusing LAC. coop with assessment nd vitals. 0030- Tolerated sips of water well, no n/v. Up to BRP, voided red colored urine, large amount, sample sent to lab. Pt did own care, red vaginal drainage present. clean pads and gown changed given to pt. ambulated back to bed well. OJ given on requests. IVF SL at this leticia. Pt is a meet criteria. tolerating well. significant other at bedside
[2025-10-10 00:52] LABS: BLOOD/HGB, URINE LARGE (Negative); KETONE, URINE NEGATIVE (Negative); LEUK ESTERASE, URINE TRACE (negative); NITRITE, URINE NEGATIVE (negative)
[2025-10-10 00:59] LABS: BACTERIA, URINE RARE /hpf (negative); CASTS, URINE NONE SEEN \\lpf; CRYSTALS, URINE NONE SEEN (0-1+); EPITHELIAL CELLS, URINE SQUAMOUS 1+ /lpf (0-1+); REFLEX CULTURE, URINE No (No)
[2025-10-10 01:03] VITALS: BP 123/59
--- NOTE | 2025-10-10 01:04 | NUR ---
PT RESTING, C/O MILD CRAMPING, PAD DRY AT THIS TIME. PT DENIES NEEDS. CALL ACUNA IN REACH, BED IN LOW POSITION AND LOCKED, SIDERAILS UP X2. PT INSTRUCTED TO CALL FOR ASSISTANCE, VERBALIZED UNDERSTANDING.
--- NOTE | 2025-10-10 01:25 | NUR ---
iv dc'd. up to BRP, changing, has tolerated liquid well, no n/v, has voided, ready to be dc home with instructions and RX
--- NOTE | 2025-10-10 01:30 | NUR ---
dc instructions given verbally and written, prescriptio for Ibuprofen given and work excuse for no work for 2 days. Pt and significant other stated understanding.
--- NOTE | 2025-10-10 01:40 | NUR ---
dc home via w/c with all belongings, dc writtend instructions and Rx given to pt and significant other earlier. no c/o pain, met criteria for DC. DC home acompanied by significant other and all belongings to home via private car.
--- NOTE | 2025-10-10 13:15 | OR ---
[facility] [address] [place] [address] [place], [place] [address] Signed DATE OF OPERATION: 10/09/2025 SURGEON: Jethro Miguel MD PREOPERATIVE DIAGNOSIS: Incomplete at approximately 8 weeks. POSTOPERATIVE DIAGNOSIS: Incomplete at approximately 8 weeks. PROCEDURE: Suction dilation and curettage. FINDINGS: Mild quantity of blood and products in uterine cavity. Cervix was dilated. ANESTHESIA: General. POINTER HELPER: None. INTRAVENOUS FLUIDS: 500 mL crystalloid. ESTIMATED BLOOD LOSS: 20 mL. URINE OUTPUT: 20 mL, clear urine. DRAINS: None. SPECIMENS: Products of conception. COUNTS CORRECT: X2. Electronically Signed By: JETHRO MIGUEL MD 10/10/25 1315 PATIENT NAME: TASH WILKINSON OPERATIVE REPORT DATE OF : [birth year] REPORT #: [id number] PHYSICIAN: JETHRO MIGUEL MD PCP: NO PRIMARY CARE PHYSICIAN REPORT IS CONFIDENTIAL AND NOT TO BE RELEASED WITHOUT AUTHORIZATION [facility] [address] [address] [place] [address] Signed COMPLICATIONS: None apparent. TECHNIQUE IN DETAIL: With informed consent, the patient was taken to the operating room where she was given general anesthesia due to recent meal. She was prepped and draped in sterile fashion, and time-out was performed per protocol. Speculum was placed, and the cervix was visualized. It was found to be dilated. Single-tooth tenaculum was placed on the anterior lip of the cervix. A size 8 curette was easily passed to the uterine fundus. The curette was then placed on suction, and the uterine cavity was curetted in all directions. We did several passes to remove all blood clot and products of conception. [place] through the procedure, we gave her 0.2 mg of Methergine intramuscularly to entice the uterus to contract. With completion of the evacuation process of her uterus, the curette was removed. The tenaculum was removed. The tenaculum sites were found to be hemostatic. The speculum was removed. The patient underwent I and O catheterization of her bladder for the above-mentioned amount. 800 mcg of misoprostol was placed rectally for continued uterine contraction. DISPOSITION: The patient was extubated in the operating room and taken to the recovery room in stable condition. MD DICKSON Marques/EDGARL /[id number] Copies: ~ Electronically Signed By: JETHRO MIGUEL MD 10/10/25 1315 PATIENT NAME: TASH WILKINSON OPERATIVE REPORT DATE OF : [birth year] REPORT #: [id number] PHYSICIAN: JETHRO MIGUEL MD PCP: NO PRIMARY CARE PHYSICIAN REPORT IS CONFIDENTIAL AND NOT TO BE RELEASED WITHOUT AUTHORIZATION
--- NOTE | 2025-10-10 13:15 | HP ---
[facility] [address] [place], [place] [address] Signed ADMISSION DATE: 10/09/2025 CHIEF COMPLAINT: Heavy vaginal bleeding. HISTORY OF PRESENT ILLNESS: The patient is a 25-year-old, G4, P2 at approximately 8 weeks gestation, who presented to the ED complaining of heavy vaginal bleeding today and near syncopal episode. She was diagnosed at 8 weeks approximately 1-1/2 weeks ago, [facility] She chose medication route and was prescribed misoprostol and mifepristone per protocol. Approximately 2 days later, she had onset of heavy bleeding and cramping for 2 to 3 days and passed large amount of blood and what appeared to be tissue. She states for the past week everything seems fine, but then today she had onset of very heavy vaginal bleeding as well as cramping with large clots. She had near syncopal episode and she knew that something was not right, so she presented to the emergency room. In the emergency room, she was worked up and found to have a high quantitative hCG as well as a low hemoglobin and an ultrasound consistent with possible retained products of conception. REVIEW OF SYSTEMS: Patient is dizzy and crampy. Otherwise, 6-point review of systems negative. PAST MEDICAL HISTORY: Asthma-mild. PAST SURGICAL HISTORY: Denies. MEDICATIONS: Albuterol ALICJA p.r.n. ALLERGIES: NKDA. OB HISTORY: Term x2. COMPLICATIONS: No complications. Elective AB x2. PROOF COINS INSPECTOR HISTORY: Electronically Signed By: JETHRO BARBER MD 10/10/25 4837 PATIENT NAME: TASH WILKINSON HISTORY AND PHYSICAL DATE OF : [birth year] REPORT #: [id number] PHYSICIAN: JETHRO BARBER MD PCP: NO PRIMARY CARE PHYSICIAN REPORT IS CONFIDENTIAL AND NOT TO BE RELEASED WITHOUT AUTHORIZATION [facility] [address] [place], [place] [address] Signed Denies sexually transmitted infection. She does have a history of abnormal Pap test. No treatment was recommended. Has not had followup. History of regular menses once a month. No other gynecologic diagnosis. FAMILY HISTORY: Hypertension and diabetes. SOCIAL HISTORY: The patient denies tobacco, but she does smoke marijuana on a daily basis. She denies alcohol and denies other drug use. PHYSICAL EXAMINATION: VITAL SIGNS: The patient's pulse is 84, respiratory rate 18, blood pressure 128/74, pulse oximetry 99% on room air. GENERAL: The patient is mildly uncomfortable, but alert and oriented x3 and in no apparent distress. HEENT: Mucous membranes moist. Sclerae anicteric. HEART: Regular rate and rhythm. No murmurs. Normal S1, S2. LUNGS: Clear to auscultation bilaterally. ABDOMEN: Normoactive bowel sounds. Abdomen is soft, nondistended, mild suprapubic tenderness. No rebound or guarding. EXTREMITIES: No cyanosis, clubbing, or edema. Lower extremities are nontender. LABORATORY DATA: CBC shows white count to be 10.59, hemoglobin 8.6, hematocrit 27.0, platelets are 304. Beta-hCG is 13,776. Pelvic ultrasound show uterus with no identifiable gestational sac and heterogeneous thickened appearance of the endometrium. There is mixed soft tissue and fluid components in the uterine cavity. Endometrial thickness is 3.2 cm. Ovaries appear normal bilaterally. There is normal free fluid. ASSESSMENT: A 25-year-old, G4, P2, at approximately 8 weeks with an incomplete medical . The patient was significant bleeding and cramping, anemia, elevated quant hCG and retained products of conception. The patient needs dilatation and curettage. PLAN: I discussed the findings and impressions with the patient as well as lab results and ultrasound findings. Recommendation made for dilatation and curettage, and she understands and agrees. All questions were answered to her satisfaction. Electronically Signed By: JETHRO BARBER MD 10/10/25 1315 PATIENT NAME: TASH WILKINSON HISTORY AND PHYSICAL DATE OF : [birth year] REPORT #: [id number] PHYSICIAN: JETHRO BARBER MD PCP: NO PRIMARY CARE PHYSICIAN REPORT IS CONFIDENTIAL AND NOT TO BE RELEASED WITHOUT AUTHORIZATION [address] [address] Signed Full PARQ held and the patient signed consent for suction D and C. We will call the crew ANDRIA and expeditiously move to the operating room. Jethro Barber MD BB/PATEL /[id number] Copies: ~ Electronically Signed By: JETHRO BARBER MD 10/10/25 1315 PATIENT NAME: TASH WILKINSON HISTORY AND PHYSICAL DATE OF : [birth year] REPORT #: [id number] PHYSICIAN: JETHRO BARBER MD PCP: NO PRIMARY CARE PHYSICIAN REPORT IS CONFIDENTIAL AND NOT TO BE RELEASED WITHOUT AUTHORIZATION
--- NOTE | 2025-10-12 11:14 | PATH ---
[facility] [address] [facility] [place], [place] [address] Signed SPECIMEN(S): A PRODUCTS OF CONCEPTION SPECIMEN SOURCE: A. PRODUCTS OF CONCEPTION CLINICAL HISTORY: Missed AB. FINAL PATHOLOGIC DIAGNOSIS: A. Products of conception, submitted: - Fragments of secretory type endometrium and chorionic villi, consistent with products of conception. DDF MICROSCOPIC EXAMINATION: Histologic sections of all submitted blocks are examined by light microscopy. These findings, together with the gross examination, support the pathologic diagnosis. Histologic sections of all submitted blocks are examined by light microscopy. These findings, together with the gross examination, support the pathologic diagnosis. GROSS DESCRIPTION: The specimen, labeled and designated "Ina Stark, products of conception," is received in formalin and consists of an 8.5 x 7.0 x 2.5 cm aggregate of pink spongy soft tissue with admixed red-brown friable blood clot. No parts are grossly identified. Clinical Psychologist Private Practice sections are submitted in (A1-A3). FB (under the direct supervision of a pathologist) The Gross Description was prepared using a voice recognition system. The report was reviewed for accuracy; however, sound-alike word errors, addition and/or deletions may occur. If there is any question about this report, please contact Client Services. ADDITIONAL NOTES: Immunohistochemical and/or in situ hybridization studies if performed in this case included appropriate positive controls that reacted as expected. This test was developed and its performance characteristics determined by [facility]. It has not been cleared or approved by the U.S. Food and Drug Administration. The FDA has determined that such clearance or approval is not PATIENT NAME: TASH STARK PATHOLOGY DATE OF : [birth year] REPORT #: [id number] PHYSICIAN: ROBIN PATHOLOGY PCP: NO PRIMARY CARE PHYSICIAN REPORT IS CONFIDENTIAL AND NOT TO BE RELEASED WITHOUT AUTHORIZATION [facility] [address] [place] [address] [place], [place] [address] Signed necessary. This test is used for clinical purposes. It should not be regarded as investigational or for research. [facility] is certified under the Clinical Laboratory Improvement Amendments of 1988 (CLIA) as qualified to perform high complexity clinical laboratory testing. PERFORMING LABORATORY: Technical component was performed by [facility], [address] [place] [address] (CLIA# [id number]). Professional interpretation was performed by [facility] - [address] [id number] Diagnostician: Pop Lugo DO Pathologist Electronically Signed 10/12/2025 Copies: ~ PATIENT NAME: TASH STARK PATHOLOGY DATE OF : [birth year] REPORT #: [id number] PHYSICIAN: ROBIN PATHOLOGY PCP: NO PRIMARY CARE PHYSICIAN REPORT IS CONFIDENTIAL AND NOT TO BE RELEASED WITHOUT AUTHORIZATION
== END 2025-10-10 01:35 | disposition home or self-care (01) ==
LOC: ED 20:22 → DS 22:51 → MS 10-10 00:01 → DS 10-10 01:35
PROVIDERS: Emergency Medicine; ATTEND Obstetrics & Gynecology
PROC: 10D17ZZ Extraction of Products of Conception, Retained, Via Natural or Artificial Opening (ICD-10-PCS; principal; 2025-10-09 22:54)
DX: O03.4 Incomplete spontaneous abortion without complication (principal); J45.909 Unspecified asthma, uncomplicated
CPT/HCPCS: 01965; 36415; 76801; 76817; 80053; 81001; 84702; 85025; 86900; 86901; 88305; 99285-25; J1885; J2003; J2210; J2250; J2405; J2704; J3010; J3490